=== PATIENT | female | born 1990 | race Asian ===

== ENCOUNTER 2024-12-04 07:35 | Inpatient (IN) | payer OTHER ==
[2024-12-04] MEDS: DEXTROSE 5%-LACTATED RINGERS 1,000 ML IV SCH (08:00)
[2024-12-04 09:24] VITALS: BMI 49.4
[2024-12-04] MEDS: CITRIC ACID/SODIUM CITRATE 30 ML UNIT-DOSE CUP PO ONE (09:40)
[2024-12-04] MEDS ORDERED: morphine SULFATE/PF 1 MG/2 ML (2cc Syringe - QUVA) ONE (10:00)
[2024-12-04] MEDS ORDERED: PROPOFOL 20 ML ONE (10:02)
[2024-12-04] MEDS ORDERED: SUCCINYLCHOLINE CHLORIDE 200 MG/10 ML SYRINGE ONE (10:02)
[2024-12-04] MEDS ORDERED: OXYTOCIN 10 UNITS/ML VIAL ONE (11:45)
[2024-12-04] MEDS: OXYTOCIN 10 UNITS/ML VIAL IM ONE (11:50)
[2024-12-04] MEDS ORDERED: oxyCODONE HCL 5 MG TABLET PO SCH (12:00)
[2024-12-04] MEDS ORDERED: OXYTOCIN 20 UNITS in 0.9% NS 20 UNIT/1,000 ML INFUS.BAG IV ONE (12:27)
[2024-12-04] MEDS: OXYTOCIN 20 UNITS in 0.9% NS 20 UNIT/1,000 ML INFUS.BAG IV SCH (12:35)
[2024-12-04 12:57] LABS: CORD BASE EXCESS -4.6 mmol/L (0-2); CORD PCO2 51.5 mmHg (30-78); CORD pH 7.267 (7.14-7.44)
[2024-12-04 13:05] LABS: CORD BASE EXCESS -6.1 mmol/L (0-2); CORD HCO3 23.2 mmHg (20-29); CORD PCO2 60.8 mmHg (30-78); CORD pH 7.2 (7.14-7.44)
[2024-12-05] MEDS: IBUPROFEN 600 MG TABLET (FP) PO PRN (06:07)
[2024-12-05 09:40] LABS: ABSOLUTE IMMATURE GRANULOCYTES 0.03 x10^3/uL (0.0-0.031); BASOPHILS # 0.04 x10^3/uL (0.01-0.08); EOSINOPHIL % 0.5 % (0.7-5.8); EOSINOPHILS # 0.05 x10^3/uL (0.04-0.36); HEMOGLOBIN 9.5 g/dL (11.2-15.7); MCHC 31.7 g/dl (32.2-35.5); MEAN PLT VOLUME 11.6 fl (9.4-12.3); MONOCYTE # 1.11 x10^3/uL (0.24-0.86); MONOCYTE % 10.2 % (4.7-12.5); PLATELET COUNT 228 x10^3/uL (182-369); RDW 14.7 % (12.1-16.8)
[2024-12-06] MEDS: ACETAMINOPHEN 325 MG TABLET (FP) PO PRN (15:10)
[2024-12-06 22:05] VITALS: PULSE 89; RESP 18
[2024-12-07 07:44] LABS: ABSOLUTE IMMATURE GRANULOCYTES 0.03 x10^3/uL (0.0-0.031); BASOPHILS # 0.04 x10^3/uL (0.01-0.08); EOSINOPHIL % 4.3 % (0.7-5.8); EOSINOPHILS # 0.34 x10^3/uL (0.04-0.36); HEMOGLOBIN 8.3 g/dL (11.2-15.7); MCHC 30.7 g/dl (32.2-35.5); MEAN CELL VOLUME 87.7 fl (79.4-94.8); MEAN PLT VOLUME 10.8 fl (9.4-12.3); MONOCYTE # 0.73 x10^3/uL (0.24-0.86); MONOCYTE % 9.1 % (4.7-12.5); PLATELET COUNT 201 x10^3/uL (182-369); RDW 15.1 % (12.1-16.8)
[2024-12-07 10:05] VITALS: BP 122/74; TEMP 98.1
== END 2024-12-07 13:25 | disposition home or self-care (01) | DRG 540 ==
LOC: JLDR 07:35 → J3W 14:30
PROVIDERS: ADMIT Obstetrics & Gynecology Maternal & Fetal Medicine; ATTEND Obstetrics & Gynecology Maternal & Fetal Medicine
PROC: 10D00Z1 Extraction of Products of Conception, Low, Open Approach (ICD-10-PCS; principal; 2024-12-04)
DX: O34.211 Maternal care for low transverse scar from previous cesarean delivery (principal); N85.8 Other specified noninflammatory disorders of uterus; O13.4 Gestational [pregnancy-induced] hypertension without significant proteinuria, complicating childbirth; O99.214 Obesity complicating childbirth; O24.12 Pre-existing type 2 diabetes mellitus, in childbirth; Z3A.38 38 weeks gestation of pregnancy; Z37.0 Single live birth
CPT/HCPCS: 36415; 36600; 59409; 80053; 82803; 85025; 85610; 86850; 86900; 86901; 86922; 88307-TC; 94010